=== PATIENT | male | born 1940 ===

== ENCOUNTER 2024-05-21 10:21 | Emergency (ER) | payer MEDICARE, OTHER ==
[2024-05-21] MEDS ORDERED: NS 1,000 ML IV SCH (11:03)
[2024-05-21] MEDS ORDERED: Mag Sulfate 1 GM/D5% 100ML 100 ML IV STA (14:03)
[2024-05-21] MEDS ORDERED: Insulin Regular 100 Unit/ML 1ML Dose IV ONE (14:05)
[2024-05-21] MEDS ORDERED: Dextrose 50% 50 ML Syringe IV ONE (14:05)
[2024-05-21 15:26] LABS: Bun/Creatinine Ratio 18.8 (12.0-20.0); Calcium, Blood 8.3 mg/dL (8.5-10.1); Creatinine, Blood 1.12 mg/dL (0.60-1.20); Magnesium, Blood 2.2 mg/dL (1.6-2.4); Potassium, Blood 4.9 mmol/L (3.5-5.5); Thyroid Stimulating Hormone 0.84 uIU/mL (0.360-4.800)
[2024-05-21 15:31] LABS: BASOPHILS ABSOLUTE AUTO 0.03 K/mm3 (0.00-0.23); BASOPHILS PERCENT AUTO 0 % (0-2); EOSINOPHILS ABSOLUTE AUTO 0.16 K/mm3 (0.00-0.68); EOSINOPHILS PERCENT AUTO 2 % (0-6); Hematocrit 45.5 % (37.0-53.0); Hemoglobin 15.3 g/dL (13.5-17.5); IMMATURE GRAN ABSOLUTE AUTO 0.05 K/mm3 (0.00-0.10); IMMATURE GRAN PERCENT AUTO 1 % (0-1); LYMPHOCYTES ABSOLUTE AUTO 0.64 K/mm3 (0.84-5.20); LYMPHOCYTES PERCENT AUTO 9 % (21-46); MONOCYTES ABSOLUTE AUTO 0.53 K/mm3 (0.16-1.47); MONOCYTES PERCENT AUTO 8 % (4-13); Mean Corpuscular HGB 30.3 pg (26.0-34.0); Mean Corpuscular HGB Conc 33.6 g/dL (31.5-36.5); Mean Corpuscular Volume 90 fL (80-100); NEUTROPHILS ABSOLUTE AUTO 5.38 K/mm3 (1.96-9.15); NEUTROPHILS PERCENT AUTO 79 % (41-73); Platelet Count 186 K/mm3 (150-400); RDW Standard Deviation 42.5 fL (35.1-46.3); Red Blood Cell Count 5.05 M/mm3 (4.30-5.90); White Blood Cell Count 6.79 K/mm3 (4.00-11.30)
[2024-05-21] MEDS ORDERED: PANT40 PO (16:14)
[2024-05-21 16:15] VITALS: BP 125/61
== END 2024-05-21 17:44 | disposition home or self-care (01) ==
LOC: ER 10:21
PROVIDERS: Family Medicine
DX: I95.89 Other hypotension (principal); R00.1 Bradycardia, unspecified; E87.5 Hyperkalemia; N28.9 Disorder of kidney and ureter, unspecified; N40.0 Benign prostatic hyperplasia without lower urinary tract symptoms; Z79.899 Other long term (current) drug therapy; Z79.82 Long term (current) use of aspirin
CPT/HCPCS: 71045; 80048; 83735; 84443; 84484; 85025; 93005; 93010; 96361; 96365; 99284-25; J1815; J3475; J7030

== ENCOUNTER 2024-06-30 11:26 | Inpatient (IN) | payer MEDICARE, OTHER ==
[2024-06-30] VITALS (11 sets, daily range): BP systolic 112–166; BP diastolic 72–103
[~2024-06-30] VITALS: Ht 180.3 cm; Wt 74.7 kg
[~2024-06-30 11:26] MED LIST: PANT40 PO
[2024-06-30 11:55] LABS: BASOPHILS ABSOLUTE AUTO 0.03 K/mm3 (0.00-0.23); BASOPHILS PERCENT AUTO 1 % (0-2); EOSINOPHILS ABSOLUTE AUTO 0.14 K/mm3 (0.00-0.68); EOSINOPHILS PERCENT AUTO 2 % (0-6); Hematocrit 47.4 % (37.0-53.0); Hemoglobin 15.9 g/dL (13.5-17.5); IMMATURE GRAN ABSOLUTE AUTO 0.03 K/mm3 (0.00-0.10); IMMATURE GRAN PERCENT AUTO 1 % (0-1); LYMPHOCYTES ABSOLUTE AUTO 1.16 K/mm3 (0.84-5.20); LYMPHOCYTES PERCENT AUTO 20 % (21-46); MONOCYTES ABSOLUTE AUTO 0.58 K/mm3 (0.16-1.47); MONOCYTES PERCENT AUTO 10 % (4-13); Mean Corpuscular HGB 29.7 pg (26.0-34.0); Mean Corpuscular HGB Conc 33.5 g/dL (31.5-36.5); Mean Corpuscular Volume 88 fL (80-100); Mean Platelet Volume 9.6 fL (9.1-12.4); NEUTROPHILS ABSOLUTE AUTO 3.88 K/mm3 (1.96-9.15); NEUTROPHILS PERCENT AUTO 67 % (41-73); Platelet Count 200 K/mm3 (150-400); RDW Standard Deviation 42.5 fL (35.1-46.3); Red Blood Cell Count 5.36 M/mm3 (4.30-5.90); White Blood Cell Count 5.82 K/mm3 (4.00-11.30)
[2024-06-30] MEDS ORDERED: TAMS.4ER PO (12:27)
[2024-06-30 12:39] LABS: Bun/Creatinine Ratio 17.3 (12.0-20.0); Calcium, Blood 8.6 mg/dL (8.5-10.1); Creatinine, Blood 1.1 mg/dL (0.60-1.20); Free Thyroxine 1.04 ng/dL (0.70-1.60); Magnesium, Blood 2.1 mg/dL (1.6-2.4); Potassium, Blood 4.2 mmol/L (3.5-5.5); Thyroid Stimulating Hormone 1.17 uIU/mL (0.360-4.800)
[2024-06-30 15:07] LABS: Anti-Xa UFH, PHA Monitoring <0.10 IU/mL; International Normalized Ratio 1.05; Prothrombin Time Results 11.2 Sec (9.7-11.5)
[2024-06-30] MEDS ORDERED: Heparin Sodium,Porcine/0.5 NS 500 ML IV SCH (15:50)
[2024-06-30] MEDS ORDERED: FentaNYL Citrate 50 MCG/ML 2 ML Injection ONE (16:08)
[2024-06-30] MEDS ORDERED: Verapamil HCL 2.5 MG/ML 2ML Injection ONE (16:08)
[2024-06-30] MEDS ORDERED: Midazolam HCl 1MG / ML 2ML Vial ONE (16:08)
[2024-06-30] MEDS ORDERED: NS 250 ML IV ONE (16:09)
[2024-06-30] MEDS ORDERED: NS 2,000 ML IV ONE (16:09)
[2024-06-30] MEDS ORDERED: Heparin Sodium 1000 Units/ML 10ML MDV ONE (16:09)
--- NOTE | 2024-06-30 18:33 | NUR ---
PT ARRIVED TO [facility] FROM [facility] AT APROX 1726. TR BAND IN PLACE TO R WRIST, C/D/I NO BLEEDING OR HEMATOMA NOTED. PULSES PALP. CONTINUOUS SPO2 IN PLACE TO R FINGER WITH GOOD PLETH AND READING. PT DENIES CHEST PAIN OR PRESSURE ON ARRIVAL. SEE ADMISSION ASSESSMENT AND VITAL SIGNS. DR ADAMS AT BEDSIDE FOR UPDATE, PT HAS BEEN ACCEPTED BY [facility] AT [facility]. AWAITING BED PLACEMENT. HEPARIN GTT INFUSING PER ORDERS. PT HAS NO COMPLAINTS AT THIS TIME. AT BEDSIDE. PT ORIENTED TO CALL LIGHT, ROOM AND UNIT ROUTINES. PT INSTRUCTED TO CALL STAFF FOR ASSISTANCE BEFORE GETTING OUT OF BED. PT AND EDUCATED ABOUT TR BAND AND MOVEMENT RESTRICTIONS, THEY VERBALIZE UNDERSTANDING. PT IS ABLE TO USE CALL LIGHT FOR NEEDS, CALL LIGHT IN REACH, WILL CONTINUE TO MONITOR AND GIVE REPORT TO NOC SHIFT RN.
[2024-06-30] MEDS ORDERED: Metoprolol Tartrate 50 MG Tab PO SCH (21:00)
[2024-06-30] MEDS ORDERED: Acetaminophen 325 MG TABLET PO PRN (23:05)
[2024-07-01] MEDS ORDERED: Dose Adjust by Pharmacy XX STA ×3 (00:48→13:47)
[2024-07-01 03:38] VITALS: BP 94/52
--- NOTE | 2024-07-01 04:19 | NUR ---
Shift summary- Patient had a good night. Began removing air from the TR-Band at a moderately slow pace due to the patient being on a continuous heparin infusion. Air removal was tolerated well- minimal to no bleeding was noted. At 0345, all of the air was removed from the TR-band balloon. Patient's arm was monitored for 1hr before removing the TR band.
[2024-07-01 04:39] LABS: Source, Urine Clean Catch
[2024-07-01 04:49] LABS: Appearance, Urine Clear (Clear); Bilirubin, Urine Neg (Neg); Blood, Urine Neg (Neg); Color, Urine Yellow (P-Yellow); Glucose Qualitative, Urine Neg (Neg); Ketones, Urine 1+ (Neg); Leukocyte Esterase, Urine Neg (Neg); Nitrite, Urine Neg (Neg); Protein, Urine Neg (Neg); Specific Gravity, Urine 1.015 (1.003-1.022); Urobilinogen, Urine NORM (Normal)
[2024-07-01 07:09] LABS: BASOPHILS ABSOLUTE AUTO 0.04 K/mm3 (0.00-0.23); BASOPHILS PERCENT AUTO 1 % (0-2); EOSINOPHILS ABSOLUTE AUTO 0.19 K/mm3 (0.00-0.68); EOSINOPHILS PERCENT AUTO 3 % (0-6); Hematocrit 45.9 % (37.0-53.0); Hemoglobin 15.5 g/dL (13.5-17.5); IMMATURE GRAN ABSOLUTE AUTO 0.03 K/mm3 (0.00-0.10); IMMATURE GRAN PERCENT AUTO 1 % (0-1); LYMPHOCYTES ABSOLUTE AUTO 0.96 K/mm3 (0.84-5.20); LYMPHOCYTES PERCENT AUTO 15 % (21-46); MONOCYTES ABSOLUTE AUTO 0.59 K/mm3 (0.16-1.47); MONOCYTES PERCENT AUTO 9 % (4-13); Mean Corpuscular HGB 29.8 pg (26.0-34.0); Mean Corpuscular HGB Conc 33.8 g/dL (31.5-36.5); Mean Corpuscular Volume 88 fL (80-100); Mean Platelet Volume 9.7 fL (9.1-12.4); NEUTROPHILS ABSOLUTE AUTO 4.83 K/mm3 (1.96-9.15); NEUTROPHILS PERCENT AUTO 73 % (41-73); Platelet Count 190 K/mm3 (150-400); RDW Coefficient Variation 13.1 % (11.7-14.2); RDW Standard Deviation 42.3 fL (35.1-46.3); Red Blood Cell Count 5.21 M/mm3 (4.30-5.90); White Blood Cell Count 6.64 K/mm3 (4.00-11.30)
[2024-07-01 07:33] LABS: Bun/Creatinine Ratio 17.1 (12.0-20.0); Calcium, Blood 8.9 mg/dL (8.5-10.1); Creatinine, Blood 1.11 mg/dL (0.60-1.20); Potassium, Blood 4.1 mmol/L (3.5-5.5)
[2024-07-01 08:06] VITALS: BP 134/73
[2024-07-01] MEDS ORDERED: Tamsulosin HCl 0.4 MG Cap PO SCH (09:00)
[2024-07-01] MEDS ORDERED: Aspirin 81 MG Chew PO SCH (09:00)
[2024-07-01] MEDS ORDERED: Pantoprazole Sodium 40 MG Tab PO SCH (09:00)
[2024-07-01] MEDS ORDERED: Atorvastatin 40 MG Tab PO SCH (09:00)
--- NOTE | 2024-07-01 09:03 | NUR ---
Assumed care of pt at 0700. Bedside report received from Evi HERNANDEZ and Latanya HERNANDEZ. Pt A&O x 4. [place]. Answers questions, follows commands, verbalizes needs. Pleasant and cooperative with care. HR 55-65, sinus arrhythmia. BP stable. Heparin drip per orders. R TR site, dressed with tegaderm. No drainage, hematoma, or bruising. Color, sensation, pulses, capillary refill equal BUE/BLE. 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
[2024-07-01 12:13] VITALS: BP 137/84
[2024-07-01 15:26] VITALS: BP 92/77
--- NOTE | 2024-07-01 16:05 | NUR ---
SUMMARY Plan of care had changed from facility transfer to [facility] instead of [facility]. SR per monitor. BP stable. Pt has remained in bed this shift. Spouse at bedside. Updated on plan of care. Sinus arrhythmia per monitor, rate 50-60. BP low/normal. SpO2 90% or greater. Denies chest pain. No additional changes to initial assessment.
[2024-07-01 20:54] VITALS: BP 126/75
[2024-07-01 23:06] VITALS: BP 103/56
[2024-07-02 03:31] VITALS: BP 132/78
[2024-07-02 04:14] LABS: BASOPHILS ABSOLUTE AUTO 0.04 K/mm3 (0.00-0.23); BASOPHILS PERCENT AUTO 1 % (0-2); EOSINOPHILS ABSOLUTE AUTO 0.25 K/mm3 (0.00-0.68); EOSINOPHILS PERCENT AUTO 3 % (0-6); Hematocrit 44.9 % (37.0-53.0); Hemoglobin 15.2 g/dL (13.5-17.5); IMMATURE GRAN ABSOLUTE AUTO 0.05 K/mm3 (0.00-0.10); IMMATURE GRAN PERCENT AUTO 1 % (0-1); LYMPHOCYTES ABSOLUTE AUTO 1.06 K/mm3 (0.84-5.20); LYMPHOCYTES PERCENT AUTO 14 % (21-46); MONOCYTES PERCENT AUTO 9 % (4-13); Mean Corpuscular HGB Conc 33.9 g/dL (31.5-36.5); Mean Corpuscular Volume 89 fL (80-100); Mean Platelet Volume 10.3 fL (9.1-12.4); NEUTROPHILS ABSOLUTE AUTO 5.31 K/mm3 (1.96-9.15); NEUTROPHILS PERCENT AUTO 72 % (41-73); Platelet Count 188 K/mm3 (150-400); RDW Coefficient Variation 13.2 % (11.7-14.2); RDW Standard Deviation 42.6 fL (35.1-46.3); Red Blood Cell Count 5.06 M/mm3 (4.30-5.90); White Blood Cell Count 7.41 K/mm3 (4.00-11.30)
--- NOTE | 2024-07-02 04:17 | NUR ---
Shift summary- Car had a good night. There was noticable confusion around midnight- he was unaware of his surroundings- but he was easily redirected with the assistance of his who stayed over in the room. VS stable throughout the night- heart rate is landing in the low 60's range- sometimes dipping just below 60- patient is not complaining of any lightheadedness or dizziness when walking around in the room though. Right wrist from angiogram site looks good- arm board had now been in place for just shy of 48hrs. Site has minor bruising but patient is not complaining of any pain, and the site remains C/D/I.
[2024-07-02 04:33] LABS: Bun/Creatinine Ratio 19.3 (12.0-20.0); Creatinine, Blood 1.14 mg/dL (0.60-1.20); Potassium, Blood 3.9 mmol/L (3.5-5.5)
[2024-07-02] MEDS ORDERED: Dose Adjust by Pharmacy XX STA ×2 (04:55→11:29)
[2024-07-02 07:43] VITALS: BP 151/81
[2024-07-02 12:02] VITALS: BP 105/63
[2024-07-02 14:39] VITALS: BP 105/63
--- NOTE | 2024-07-02 15:44 | NUR ---
TRANSFER SUMMARY PT A&OX4. VSS. PT DENIES PAIN. TRANSPORT TEAM TO TRANSPORT TO [facility], PT AGREED FOR CABG. TRANSPORT TEAM ARRIVED APPROX 1530. PT AMBULATED INDEPENDENTLY FROM PCU BED TO TRANSPORT [facility]. PT W/ HEP GTT INFUSING PER EMAR. REPORT CALLED TO MARY CARDOZO AT [facility]. TO FOLLOW IN PRIVATE VEHICLE WITH PERSONAL BELONGINGS.
== END 2024-07-02 15:37 | disposition short-term general hospital (02) | DRG 287 ==
LOC: ER 11:26 → PCU 16:06
PROVIDERS: Emergency Medicine; ADMIT Internal Medicine
PROC: B2111ZZ Fluoroscopy of Multiple Coronary Arteries using Low Osmolar Contrast (ICD-10-PCS; principal; 2024-06-30)
PROC: 4A023N7 Measurement of Cardiac Sampling and Pressure, Left Heart, Percutaneous Approach (ICD-10-PCS; 2024-06-30)
DX: I48.0 Paroxysmal atrial fibrillation (principal); I25.10 Atherosclerotic heart disease of native coronary artery without angina pectoris; R55 Syncope and collapse; R79.89 Other specified abnormal findings of blood chemistry; N40.0 Benign prostatic hyperplasia without lower urinary tract symptoms; E78.5 Hyperlipidemia, unspecified; Z87.891 Personal history of nicotine dependence
CPT/HCPCS: 36415; 70450; 71045; 71260; 76937; 80048; 81003; 82607; 83735; 84439; 84443; 84484; 85025; 85379; 85520; 85610; 93005; 93010; 93306; 93458; 99152; 99285-25; A9270; C1769; C1887; C1894; J1644; J2250; J3010; J7030; J7050; Q9967